=== PATIENT | female | born 1995 | race Caucasian/White ===

== ENCOUNTER 2016-07-20 19:15 | Emergency (ER) | payer SELFPAY ==
[2016-07-20] MEDS ORDERED: ASPIRIN 81 MG TABLET, CHEWABLE PO ONE (21:08)
--- NOTE | 2016-07-20 21:08 | ER Document Report ---
ED Medical Screen (RME) - General Stated Complaint: DIFFICULTY BREATHING Mode of Arrival: Ambulatory Information source: Patient Notes: pt presents with c/o difficulty breathing, hx of asthma, reports sharp chest pains all today with dizzy. Reports her body comes/goes with numbness. Denies f /v/d/. No wheeze. RR even/unlabored. sharp chest pain all the time today, reports mom has same pain. TRAVEL OUTSIDE OF THE [place] IN LAST 30 DAYS: No - Related Data Allergies/Adverse Reactions: montelukast sodium [From [facility]y] Allergy (Verified 05/15/16 00:01) Hives Past Medical History Pulmonary Medical History: Reports: Hx Asthma Endocrine Medical History: Reports: Hx Diabetes Mellitus Type 2 - gestational - Immunizations Immunizations up to date: Yes Hx Diphtheria, Pertussis, Tetanus Vaccination: Yes Physical Exam - Vital signs Vitals: Temp Pulse Resp BP Pulse Ox 97.4 F 76 18 117/60 100 07/20/16 19:58 07/20/16 19:58 07/20/16 19:58 07/20/16 19:58 07/20/16 19:58 Course - Vital Signs Vital signs: Temp Pulse Resp BP Pulse Ox 97.4 F 76 18 117/60 100 07/20/16 19:58 07/20/16 19:58 07/20/16 19:58 07/20/16 19:58 07/20/16 19:58
--- NOTE | 2016-07-20 23:13 | ER Document Report ---
ED Respiratory Problem - General Mode of Arrival: Ambulatory Information source: Patient TRAVEL OUTSIDE OF THE [place] IN LAST 30 DAYS: No - HPI Patient complains to provider of: Chest pain Associated symptoms: Other - See above <REJI ALBRECHT - Last Filed: 07/21/16 01:22> <ROMAINSUSANNAH CHARLIE - Last Filed: 07/21/16 04:40> - General Chief Complaint: Chest Pain Stated Complaint: chest pain Notes: Patient is a 21 year old female, with a past medical history including asthma, who presents to the emergency department complaining of chest pain onset at 1600 yesterday. Patient reports she was sitting on the couch when her chest felt tight and she became short of breath, patient reports she is feeling better now. Patient also complains of difficulty breathing occurring intermittently for the past month. Patient states she does not have an inhaler at home and has not used one in years. Patient reports she has cats and a dog at home. Patient denies cough, congestion, anxiety, and recent travel. (REJI ALBRECHT) - Related Data Allergies/Adverse Reactions: montelukast sodium [From Singulair] Allergy (Verified 07/20/16 21:06) Hives Past Medical History - General Information source: Patient - Social History Smoking Status: Never Smoker Chew tobacco use (# tins/day): No Frequency of alcohol use: Occasional Drug Abuse: None Family History: Reviewed & Not Pertinent, Hypertension Patient has suicidal ideation: No Patient has homicidal ideation: No Pulmonary Medical History: Reports: Hx Asthma Endocrine Medical History: Reports: Hx Diabetes Mellitus Type 2 - gestational - Immunizations Immunizations up to date: Yes Hx Diphtheria, Pertussis, Tetanus Vaccination: Yes <REJI ALBRECHT - Last Filed: 07/21/16 01:22> Review of Systems - Review of Systems Constitutional: No symptoms reported EENT: denies: Nose congestion Cardiovascular: See HPI, Chest pain Respiratory: See HPI, Short of breath. denies: Cough Gastrointestinal: No symptoms reported Genitourinary: No symptoms reported Female Genitourinary: No symptoms reported Musculoskeletal: No symptoms reported Skin: No symptoms reported Hematologic/Lymphatic: No symptoms reported Neurological/Psychological: denies: Anxiety -: Yes All other systems reviewed and negative <REJI ALBRECHT - Last Filed: 07/21/16 01:22> Physical Exam - Vital signs Interpretation: Normal - General General appearance: Appears well, Alert - HEENT Head: Normocephalic, Atraumatic - Respiratory Respiratory status: No respiratory distress Chest status: Nontender Breath sounds: Normal Chest palpation: Normal - Cardiovascular Rhythm: Regular Heart sounds: Normal auscultation Murmur: No - Abdominal Inspection: Normal Distension: No distension Bowel sounds: Normal Tenderness: Nontender Organomegaly: No organomegaly - Back Back: Normal, Nontender - Extremities General upper extremity: Normal inspection General lower extremity: Normal inspection - Neurological Neuro grossly intact: Yes Cognition: Normal Orientation: AAOx4 [place] Coma Scale Eye Opening: Spontaneous [place] Coma Scale Verbal: Oriented [place] Coma Scale Motor: Obeys Commands [place] Coma Scale Total: 15 Speech: Normal - Psychological Associated symptoms: Normal affect, Normal mood - Skin Skin Temperature: Warm Skin Moisture: Dry Skin Color: Normal <REJI ALBRECHT - Last Filed: 07/21/16 01:22> Course <REJI ALBRECHT - Last Filed: 07/21/16 01:22> - Diagnostic Test Radiology reviewed: Reports reviewed <SUSANNAH HOYOS - Last Filed: 07/21/16 04:40> - Re-evaluation Re-evalutation: 07/21/16 Patient is a 21-year-old female who had some chest pain and difficulty breathing but none at this time. Patient has a history of asthma. Will be given an inhaler to go home with. No concern this time. No pain or difficulty breathing currently. Follow-up with PMD. Return if any worsening or concerning symptoms. (SUSANNAH HOYOS) - Vital Signs Vital signs: Temp Pulse Resp BP Pulse Ox 98.0 F 68 18 104/63 98 07/21/16 00:42 07/21/16 00:42 07/21/16 00:42 07/21/16 00:42 07/21/16 00:42 Discharge <REJI ALBRECHT - Last Filed: 07/21/16 01:22> <SUSANNAH HOYOS - Last Filed: 07/21/16 04:40> - Discharge Clinical Impression: Bronchospasm Condition: Stable Disposition: HOME, SELF-CARE Instructions: Bronchospasm ([facility]), Bronchodilators ([facility]) Additional Instructions: Please follow-up with your primary care doctor when you are able to do so. Scribe Attestation: 07/21/16 04:40 I personally performed the services described in the documentation, reviewed and edited the documentation which was dictated to the scribe in my presence, and it accurately records my words and actions. (SUSANNAH HOYOS) Scribe Documentation - Scribe Written by Lucien:: lucien Tay, 07/21/16, 0123 acting as scribe for :: Romain <REJI ALBRECHT - Last Filed: 07/21/16 01:22>
[2016-07-20] MEDS ORDERED: ALBUTEROL SULFATE HFA (90 MCG/PUFF) 8 GM MDI (1 MDI/ER DISP) IH ONE (23:57)
[2016-07-21 00:44] VITALS: BP 104/63
--- NOTE | 2016-07-21 12:59 | EKG REPORT ---
SEVERITY:- NORMAL ECG - SINUS RHYTHM : Confirmed by: Gordy Sinha 21-Jul-2016 12:59:06
== END 2016-07-21 00:27 | disposition home or self-care (01) ==
LOC: ER 19:15
DX: J98.01 Acute bronchospasm (principal); R06.00 Dyspnea, unspecified; R42 Dizziness and giddiness; R07.9 Chest pain, unspecified; R20.0 Anesthesia of skin
CPT/HCPCS: 93005; 99285; 71020; 93010; J3490

== ENCOUNTER 2016-08-27 01:43 | Emergency (ER) | payer SELFPAY ==
--- NOTE | 2016-08-27 04:42 | ER Document Report ---
ED General - General Chief Complaint: Breathing Difficulty Stated Complaint: CHEST PRESSURE POSSIBLE ANXIETY Notes: Patient is a 21-year-old female presents with complaint of pain in her upper anterior chest. She says it's typically gets "stress" pains. She's had these for a long time. She says this pain was more intense than usual. Sternal 6 PM. It has since gone. She currently does not have the pain anymore. She says she does have history of asthma. She does not think she has been wheezing. No recent trauma to the chest. No recent long road trips. No recent leg pain or leg swelling. No history of PE or DVT. No recent fevers. No other complaints at this time. She is not on control. She does not smoke. TRAVEL OUTSIDE OF THE [place] IN LAST 30 DAYS: No - Related Data Allergies/Adverse Reactions: montelukast sodium [From [facility]] Allergy (Verified 08/27/16 01:53) Hives Past Medical History - Social History Smoking Status: Never Smoker Frequency of alcohol use: None Drug Abuse: None Family History: Reviewed & Not Pertinent, Hypertension Pulmonary Medical History: Reports: Hx Asthma Endocrine Medical History: Reports: Hx Diabetes Mellitus Type 2 - gestational Renal/ Medical History: Denies: Hx Peritoneal Dialysis - Immunizations Immunizations up to date: Yes Hx Diphtheria, Pertussis, Tetanus Vaccination: Yes Review of Systems - Review of Systems Notes: My Normal Review Basic REVIEW OF SYSTEMS: CONSTITUTIONAL : Denies fever, chills, or sweats. Denies recent illness. EENT: Denies eye, ear, throat, or mouth pain or symptoms. Denies nasal or sinus congestion. CARDIOVASCULAR: Had chest pain. RESPIRATORY: Denies cough, cold, or chest congestion. Denies shortness of breath, difficulty breathing, or wheezing. GASTROINTESTINAL: Denies abdominal pain. Denies nausea, vomiting, or diarrhea. Denies constipation. Last BM: MUSCULOSKELETAL: Denies neck or back pain or joint pain or swelling. SKIN: Denies rash or skin lesions. HEMATOLOGIC : Denies easy bruising or bleeding. NEUROLOGICAL: Denies altered mental status or loss of consciousness. Denies headache. Denies weakness or paralysis or loss of use of either side. Denies problems with gait or speech. Denies sensory or motor loss.on. ALL OTHER SYSTEMS REVIEWED AND NEGATIVE. Physical Exam - Vital signs Vitals: Temp Pulse Resp BP Pulse Ox 97.8 F 72 15 116/66 100 08/27/16 01:52 08/27/16 01:52 08/27/16 01:52 08/27/16 01:52 08/27/16 01:52 - Notes Notes: General Appearance: Well nourished, alert, cooperative, no acute distress, no obvious discomfort. Well-appearing. Vitals: reviewed, See vital signs table. Head: no swelling or tenderness to the head Eyes: PERRL, EOMI, Conjuctiva clear Mouth: No decreasd moisture Neck: Supple, no neck tenderness, No thyromegaly Lungs: No wheezing, No rales, No rhonci, No accessory muscle use, good air exchange bilaterally. Heart: Normal rate, Regular rythm, No murmur, no rub Abdomen: Normal BS, soft, No rigidity, No abdominal tenderness, No guarding, no rebound, no abdominal masses, no organomegaly Extremities: strength 5/5 in all extremities, good pulses in all extremities, no swelling or tenderness in the extremities, no edema. Skin: warm, dry, appropriate color, no rash Neuro: speech clear, oriented x 3, normal affect, responds appropriately to questions. Course - Vital Signs Vital signs: Temp Pulse Resp BP Pulse Ox 97.8 F 72 17 106/68 98 08/27/16 01:52 08/27/16 01:52 08/27/16 05:01 08/27/16 05:01 08/27/16 05:01 - Transfer of Care Notes: 08/27/16 05:58 Patient's chest pain is resolving on its own. Her EKG and chest x-ray negative. I do not suspect coronary disease as she is otherwise healthy 21-year -old female. She is PERC rule Negative. She has no risk factors for PE or DVT. At this time I feel she is safe to be discharged home. I encourage her to return to ER immediately if she has recurrent chest pain, difficulty breathing, fevers, or feels unwell. Dictation of this chart was performed using voice recognition software; therefore, there may be some unintended grammatical errors. Discharge - Discharge Clinical Impression: Chest pain Qualifiers: Chest pain type: unspecified Qualified Code(s): R07.9 - Chest pain, unspecified Condition: Good Disposition: HOME, SELF-CARE Additional Instructions: Please return to the ER immediately if you develop worsening pain, difficulty breathing, fevers, or feel unwell. Follow up wiht your doctor in 1-2 days for reevaluation.
[2016-08-27 06:11] VITALS: BP 91/55
--- NOTE | 2016-08-27 08:32 | EKG REPORT ---
SEVERITY:- NORMAL ECG - SINUS RHYTHM : Confirmed by: Rodger Whitehead MD 27-Aug-2016 08:31:46
== END 2016-08-27 06:09 | disposition home or self-care (01) ==
LOC: ER 01:43
DX: R06.02 Shortness of breath (principal); R07.9 Chest pain, unspecified
CPT/HCPCS: 71020; 93005; 93010; 99285

== ENCOUNTER → 2016-12-07 | Outpatient (CLI) | payer MEDICAID ==
--- NOTE | 2016-12-07 17:29 | RADIOLOGY REPORT (SQ) ---
EXAM DESCRIPTION: ANKLE LEFT COMPLETE COMPLETED DATE/TIME: 12/07/2016 5:04 pm REASON FOR STUDY: PAIN IN LEFT ANKLE AND JOINTS OF LEFT FOOT M25.572 PAIN IN LEFT ANKLE AND JOINTS OF LEFT FOOT COMPARISON: None. NUMBER OF VIEWS: Three views. TECHNIQUE: AP, lateral, and oblique radiographic images acquired of the left ankle. LIMITATIONS: None. FINDINGS: MINERALIZATION: Normal. BONES: No acute fracture or dislocation. No worrisome bone lesions. JOINTS: No effusions. SOFT TISSUES: No soft tissue swelling. No foreign body. OTHER: No other significant finding. IMPRESSION: NEGATIVE STUDY OF THE LEFT ANKLE. NO RADIOGRAPHIC EVIDENCE OF ACUTE INJURY. TECHNICAL DOCUMENTATION: JOB ID: [id number] [employer]- All Rights Reserved
--- NOTE | 2016-12-07 17:30 | RADIOLOGY REPORT (SQ) ---
EXAM DESCRIPTION: FOOT LEFT COMPLETE COMPLETED DATE/TIME: 12/07/2016 5:04 pm REASON FOR STUDY: PAIN IN LEFT ANKLE AND JOINTS OF LEFT FOOT M25.572 PAIN IN LEFT ANKLE AND JOINTS OF LEFT FOOT COMPARISON: 02/14/2007 NUMBER OF VIEWS: Three views. TECHNIQUE: AP, lateral and oblique without weight bearing radiographic images acquired of the left f oot. LIMITATIONS: None. FINDINGS: MINERALIZATION: Normal. BONES: No acute fracture or dislocation. No worrisome bone lesions. No significant osteophytes. JOINTS: No erosions. No renata-articular osteopenia. No chondrocalcinosis. SOFT TISSUES: No swelling. No calcifications. OTHER: No other significant finding. IMPRESSION: NEGATIVE STUDY OF THE LEFT FOOT. NO EXPLANATION FOR PAIN. TECHNICAL DOCUMENTATION: JOB ID: [id number] [employer]- All Rights Reserved
== END ==
LOC: OD 16:01
PROVIDERS: ATTEND Family Medicine Geriatric Medicine
DX: M25.572 Pain in left ankle and joints of left foot (principal)

== ENCOUNTER → 2016-12-08 | Outpatient (CLI) | payer MEDICAID ==
[2016-12-08 12:39] LABS: ABSOLUTE EOSINOPHILS # (AUTO) 0.1 10^3/uL (0.0-0.6); ABSOLUTE LYMPHOCYTES (AUTO) 1.6 10^3/uL (0.5-4.7); ABSOLUTE MONOCYTES (AUTO) 0.4 10^3/uL (0.1-1.4); BASOPHILS % (AUTO) 0.4 % (0-2); EOSINOPHILS % (AUTO) 1.2 % (0-6); HEMATOCRIT 41.3 % (36.0-47.0); HEMOGLOBIN 14.1 g/dL (12.0-15.5); LYMPHOCYTES % (AUTO) 31.7 % (13-45); MEAN CORPUSCULAR HEMOGLOBIN 31.7 pg (27.0-33.4); MEAN CORPUSCULAR HGB CONC 34.2 g/dL (32.0-36.0); MEAN CORPUSCULAR VOLUME 93 fl (80-97); MONOCYTES % (AUTO) 7.5 % (3-13); RED BLOOD COUNT 4.45 10^6/uL (3.72-5.28); RED CELL DISTRIBUTION WIDTH 12.9 % (11.5-14.0); SEGMENTED NEUTROPHILS % (AUTO) 59.2 % (42-78)
[2016-12-08 13:23] LABS: DIRECT LDL 79 mg/dL (<100); Direct HDL 46 mg/dL (>40); TRIGLYCERIDES 37 mg/dL (<150); URIC ACID 3.5 mg/dL (2.5-6.2)
[2016-12-08 19:03] LABS: ALANINE AMINOTRANSFERASE 19 U/L (9-52); ALBUMIN 4.6 g/dL (3.5-5.0); ALKALINE PHOSPHATASE 56 U/L (38-126); ANION GAP 12 (5-19); ASPARTATE AMINO TRANSFERASE 22 U/L (14-36); BILIRUBIN,DIRECT 0.4 mg/dL (0.0-0.4); BILIRUBIN,TOTAL 0.7 mg/dL (0.2-1.3); BLOOD UREA NITROGEN 13 mg/dL (7-20); CALCIUM 9.5 mg/dL (8.4-10.2); CARBON DIOXIDE 21 mmol/L (22-30); CHLORIDE 106 mmol/L (98-107); CREATININE RESULT 0.68 mg/dL (0.52-1.25); GLUCOSE 86 mg/dL (75-110); POTASSIUM 4.3 mmol/L (3.6-5.0); SODIUM 138.5 mmol/L (137-145); TOTAL PROTEIN 7.4 g/dL (6.3-8.2)
== END ==
LOC: OD 11:27
PROVIDERS: ATTEND Internal Medicine
DX: G43.009 Migraine without aura, not intractable, without status migrainosus (principal); M25.572 Pain in left ankle and joints of left foot; J45.20 Mild intermittent asthma, uncomplicated; E66.9 Obesity, unspecified; Z79.899 Other long term (current) drug therapy
CPT/HCPCS: 36415; 80053; 80061; 84443; 84550; 85025

== ENCOUNTER 2018-05-25 10:34 | Emergency (ER) | payer SELFPAY ==
[2018-05-25 10:40] VITALS: BP 110/64
[2018-05-25] MEDS ORDERED: TETRACAINE HCL 0.5% OPH SOLN 4 ML OD ONE (11:10)
--- NOTE | 2018-05-25 11:10 | ER Document Report ---
HPI - HPI Time Seen by Provider: 05/25/18 11:01 Pain Level: 2 Notes: Patient is an otherwise healthy 23-year-old female who presents to the emergency department with complaints of possible conjunctivitis. Patient reports that a few days ago she had a large cat hair in her left eye, she pulled it out and ever since then she has had some discomfort and she treated it with [id number] "pinkeye drops" she states that now she has drainage coming from her right eye. She denies any changes to her vision. Patient also denies any pain to the eye she describes it as an irritation. - REPRODUCTIVE Reproductive: DENIES: : Past Medical History - General Information source: Patient - Social History Smoking Status: Never Smoker Frequency of alcohol use: None Drug Abuse: None Family History: Reviewed & Not Pertinent, Hypertension Pulmonary Medical History: Reports: Hx Asthma Renal/ Medical History: Denies: Hx Peritoneal Dialysis Surgical Hx: Negative - Immunizations Immunizations up to date: Yes Hx Diphtheria, Pertussis, Tetanus Vaccination: Yes Vertical Provider Document - CONSTITUTIONAL Notes: PHYSICAL EXAMINATION: GENERAL: Well-appearing, well-nourished and in no acute distress. HEAD: Atraumatic, normocephalic. EYES: Pupils equal round extraocular movements intact, conjunctiva are pink, drainage noted to right eye. ENT: Nares patent NECK: Normal range of motion LUNGS: No respiratory distress Musculoskeletal: Normal range of motion NEUROLOGICAL: Normal speech, normal gait. PSYCH: Normal mood, normal affect. SKIN: Warm, Dry, normal turgor, no rashes or lesions noted. - INFECTION CONTROL TRAVEL OUTSIDE OF THE [place] IN LAST 30 DAYS: No Course - Re-evaluation Re-evalutation: 05/25/18 11:21 Visual acuity was done by nursing staff patient has 20/20 vision in both eyes visually. Eye examination was performed using flourescein stain. No evidence of corneal abrasion was noted. Patient will be placed on Polytrim eyedrops for conjunctivitis. - Vital Signs Vital signs: Temp Pulse Resp BP Pulse Ox 98.3 F 84 16 110/64 97 05/25/18 10:39 05/25/18 10:39 05/25/18 10:39 05/25/18 10:39 05/25/18 10:39 Discharge - Discharge Clinical Impression: Conjunctivitis Qualifiers: Conjunctivitis type: unspecified Laterality: bilateral Qualified Code(s): H10.9 - Unspecified conjunctivitis Condition: Stable Disposition: HOME, SELF-CARE Additional Instructions: Conjunctivitis You have an infection in your eye, commonly known as "pink eye." Conjunctivitis causes redness, mild discomfort, itching, and mattering on the eyelids. It is very contagious, so you must be careful to wash your hands after touching your face so you don't pass the infection on to others. Conjunctivitis is caused by both viruses and bacteria. It usually responds quickly to treatment with antibiotic drops. These should be placed in the eye as prescribed (usually every three to four hours while you're awake). If you wear contact lenses, don't put them in your eyes until the infection is cleared and you are no longer using the drops (unless your doctor advises you otherwise). Should you develop increasing eye pain, severe swelling, decreased vision, or fail to improve as expected, please return for re-examination. Please use eyedrops as directed, do not put any other drops into your eye. You will continue to be contagious for 24 hours from the first use of the eyedrops. Wash your hands frequently and be sure to wash any linens/pillow cases that you have been sleeping on over the next 1-2 days. Prescriptions: Polymyxin B Sulf/Trimethoprim [Polytrim Eye Drops] 1 drop OU Q3H 7 Days #10 ml Referrals: JANETH REID MD [Primary Care Provider] - Follow up as needed
== END 2018-05-25 11:30 | disposition home or self-care (01) ==
LOC: ER 10:34
DX: H10.9 Unspecified conjunctivitis (principal); I10 Essential (primary) hypertension; J45.909 Unspecified asthma, uncomplicated
CPT/HCPCS: 99283

== ENCOUNTER → 2018-06-14 | Outpatient (CLI) | payer MEDICAID ==
[2018-06-14 11:46] LABS: ABSOLUTE LYMPHOCYTES (AUTO) 1.6 10^3/uL (0.5-4.7); ABSOLUTE MONOCYTES (AUTO) 0.5 10^3/uL (0.1-1.4); ABSOLUTE NEUT (AUTO) 3.9 10^3/uL (1.7-8.2); BASOPHILS % (AUTO) 0.7 % (0-2); EOSINOPHILS % (AUTO) 0.8 % (0-6); HEMATOCRIT 42.2 % (36.0-47.0); HEMOGLOBIN 14.6 g/dL (12.0-15.5); LYMPHOCYTES % (AUTO) 25.6 % (13-45); MEAN CORPUSCULAR HEMOGLOBIN 31.6 pg (27.0-33.4); MEAN CORPUSCULAR HGB CONC 34.5 g/dL (32.0-36.0); MEAN CORPUSCULAR VOLUME 92 fl (80-97); MONOCYTES % (AUTO) 8.6 % (3-13); PLATELET COUNT 316 10^3/uL (150-450); RED BLOOD COUNT 4.61 10^6/uL (3.72-5.28); RED CELL DISTRIBUTION WIDTH 12.8 % (11.5-14.0); SEGMENTED NEUTROPHILS % (AUTO) 64.3 % (42-78); TOTAL CELLS COUNTED % (AUTO) 100 %; WHITE BLOOD COUNT 6.1 10^3/uL (4.0-10.5)
== END ==
LOC: OD 10:56
PROVIDERS: ATTEND Family Medicine Geriatric Medicine
DX: R19.7 Diarrhea, unspecified (principal); Z79.899 Other long term (current) drug therapy
CPT/HCPCS: 36415; 82272; 85025; 87045; 87177; 87205; 87493